=== PATIENT | female | born 1950 ===

== ENCOUNTER 2020-01-21 09:19 | Inpatient (IN) ==
[2020-01-21] MEDS: *HR* OxyCODONE/APAP 5/325 TABLET PO PRN ×3 (13:16→21:48)
[2020-01-21] MEDS: Latanoprost 2.5 ML BOTTLE BOTH EYES SCH (21:49)
[2020-01-21] MEDS: hydrALAZINE 25 MG TABLET PO SCH (21:49)
[2020-01-22] MEDS: *HR* OxyCODONE/APAP 5/325 TABLET PO PRN ×3 (04:40→18:46)
[2020-01-22 06:16] LABS: Basophils % 0.5 %; Eosinophils # 0.2 K/mcL (0.0-0.6); Hematocrit 31.6 % (35.3-44.9); Hemoglobin 10.4 g/dL (11.5-15.4); Lymphocytes # 1.2 K/mcL (0.6-4.6); Mean Corpuscular HGB Conc 32.9 g/dL (31.6-35.5); Mean Corpuscular Hemoglobin 29.4 pg (28.0-33.3); Mean Corpuscular Volume 89.3 fL (83.0-100.0); Mean Platelet Volume 10.8 fL (9.4-12.4); Monocytes # 0.7 K/mcL (0.0-1.3); Monocytes % 8.7 %; Platelet Count 325 K/mcL (140-400); Red Blood Count 3.54 M/mcL (3.82-4.97); Red Cell Distribution Width 14.6 % (11.5-14.5); Segmented Neutrophils % 72.8 %; White Blood Count 8.2 K/mcL (4.3-11.1)
[2020-01-22 06:33] LABS: BUN/Creatinine Ratio 51 (6-26); Blood Urea Nitrogen 49 mg/dL (8-23); Calcium 8.9 mg/dL (8.6-10.3); Carbon Dioxide 26 mEq/L (23-29); Chloride 97 mEq/L (98-107); Glucose 190 mg/dL (70-105); Osmolality,Calculated 292 (280-300); Potassium 4.3 mEq/L (3.5-5.1); Sodium 132 mEq/L (136-145); eGFR For African Americans > 60 (> 60); eGFR For Non-African Americans 57 (> 60)
[2020-01-22] MEDS: [UNRECOGNIZED DRUG - REMARK] PO SCH (09:49)
[2020-01-22] MEDS: VIT E PO SCH (09:49)
[2020-01-22] MEDS: COPPER PO SCH (09:49)
[2020-01-22] MEDS: VIT A PO SCH (09:49)
[2020-01-22] MEDS: ZINC SULFATE 220 MG PO SCH (09:49)
[2020-01-22] MEDS: ZINC PO SCH (09:49)
[2020-01-22] MEDS: VIT C PO SCH (09:49)
[2020-01-22] MEDS: Valsartan 160 MG TABLET PO SCH (09:50)
[2020-01-22] MEDS: Cholecalciferol (D-3) 1,000 UNIT (25MCG) TABLET PO SCH (09:50)
[2020-01-22] MEDS: hydrALAZINE 25 MG TABLET PO SCH ×2 (09:50→20:17)
[2020-01-22] MEDS: Vitamin B Complex/Vit C/Vit E 1 EACH TABLET PO SCH (09:50)
[2020-01-22] MEDS: *HR* Metformin 500 MG TABLET PO SCH ×2 (09:51→20:18)
[2020-01-22] MEDS: Fenofibrate 54 MG TABLET PO SCH (09:51)
[2020-01-22] MEDS: Aspirin 325 MG TABLET PO SCH (09:51)
[2020-01-22] MEDS: hydroCHLOROthiazide 25 MG TABLET PO SCH (09:52)
[2020-01-22] MEDS: INSULIN DEGLUDEC SQ SCH (09:54)
[2020-01-22] MEDS: LIRAGLUTIDE SQ SCH (09:54)
[2020-01-22] MEDS ORDERED: Dextrose Gel 15 GM/37.5 ML TUBE PO PRN ×2 (14:28)
[2020-01-22] MEDS ORDERED: *HR* Dextrose 50 % in Water (Vial) 50 ML VIAL IVP PRN (14:28)
[2020-01-22] MEDS ORDERED: D5% in Water 1,000 ML IVC PRN (14:28)
[2020-01-22] MEDS: Insulin LISPRO 300 UNITS/3 ML VIAL SQ SCH (16:40)
[2020-01-22] MEDS: Latanoprost 2.5 ML BOTTLE BOTH EYES SCH (22:05)
[2020-01-23] MEDS: *HR* OxyCODONE/APAP 5/325 TABLET PO PRN ×4 (02:49→16:41)
[2020-01-23] MEDS: *HR* Metformin 500 MG TABLET PO SCH ×2 (08:22→19:55)
[2020-01-23] MEDS: Fenofibrate 54 MG TABLET PO SCH (08:22)
[2020-01-23] MEDS: Valsartan 160 MG TABLET PO SCH (08:23)
[2020-01-23] MEDS: hydrALAZINE 25 MG TABLET PO SCH ×2 (08:23→19:55)
[2020-01-23] MEDS: Vitamin B Complex/Vit C/Vit E 1 EACH TABLET PO SCH (08:23)
[2020-01-23] MEDS: Insulin LISPRO 300 UNITS/3 ML VIAL SQ SCH ×3 (08:24→16:39)
[2020-01-23] MEDS: Cholecalciferol (D-3) 1,000 UNIT (25MCG) TABLET PO SCH (08:24)
[2020-01-23] MEDS: Aspirin 325 MG TABLET PO SCH (08:24)
[2020-01-23] MEDS: Fluticasone Propionate Nasal 50 MCG/SPRAY BOTTLE NS SCH (08:24)
[2020-01-23] MEDS: hydroCHLOROthiazide 25 MG TABLET PO SCH (08:24)
[2020-01-23] MEDS: VIT A PO SCH (08:25)
[2020-01-23] MEDS: ZINC PO SCH (08:25)
[2020-01-23] MEDS: COPPER PO SCH (08:25)
[2020-01-23] MEDS: VIT E PO SCH (08:25)
[2020-01-23] MEDS: [UNRECOGNIZED DRUG - REMARK] PO SCH (08:25)
[2020-01-23] MEDS: VIT C PO SCH (08:25)
[2020-01-23] MEDS: ZINC SULFATE 220 MG PO SCH (08:25)
[2020-01-23] MEDS: INSULIN DEGLUDEC SQ SCH (08:30)
[2020-01-23] MEDS: LIRAGLUTIDE SQ SCH (08:30)
[2020-01-23] MEDS ORDERED: ZINC SULFATE 220 MG PO SCH (11:30)
[2020-01-23] MEDS: Zinc Sulfate 220 MG CAPSULE PO SCH (12:32)
[2020-01-23] MEDS: Furosemide 20 MG TABLET PO SCH (16:01)
[2020-01-23] MEDS: Latanoprost 2.5 ML BOTTLE BOTH EYES SCH (19:58)
[2020-01-24] MEDS: *HR* OxyCODONE/APAP 5/325 TABLET PO PRN ×4 (01:46→20:30)
[2020-01-24] MEDS: Insulin LISPRO 300 UNITS/3 ML VIAL SQ SCH ×3 (07:57→17:33)
[2020-01-24] MEDS: Fenofibrate 54 MG TABLET PO SCH (08:17)
[2020-01-24] MEDS: hydroCHLOROthiazide 25 MG TABLET PO SCH (08:18)
[2020-01-24] MEDS: Valsartan 160 MG TABLET PO SCH (08:18)
[2020-01-24] MEDS: *HR* Metformin 500 MG TABLET PO SCH ×2 (08:18→20:27)
[2020-01-24] MEDS: Vitamin B Complex/Vit C/Vit E 1 EACH TABLET PO SCH (08:18)
[2020-01-24] MEDS: Furosemide 20 MG TABLET PO SCH (08:18)
[2020-01-24] MEDS: Aspirin 325 MG TABLET PO SCH (08:18)
[2020-01-24] MEDS: hydrALAZINE 25 MG TABLET PO SCH ×2 (08:19→19:13)
[2020-01-24] MEDS: Zinc Sulfate 220 MG CAPSULE PO SCH (08:19)
[2020-01-24] MEDS: INSULIN DEGLUDEC SQ SCH (08:28)
[2020-01-24] MEDS: LIRAGLUTIDE SQ SCH (08:28)
[2020-01-24] MEDS: [UNRECOGNIZED DRUG - REMARK] PO SCH (08:28)
[2020-01-24] MEDS: COPPER PO SCH (08:29)
[2020-01-24] MEDS: Fluticasone Propionate Nasal 50 MCG/SPRAY BOTTLE NS SCH (08:29)
[2020-01-24] MEDS: Cholecalciferol (D-3) 1,000 UNIT (25MCG) TABLET PO SCH (08:29)
[2020-01-24] MEDS: VIT E PO SCH (08:29)
[2020-01-24] MEDS: VIT A PO SCH (08:29)
[2020-01-24] MEDS: VIT C PO SCH (08:29)
[2020-01-24] MEDS: ZINC PO SCH (08:29)
[2020-01-24] MEDS: Latanoprost 2.5 ML BOTTLE BOTH EYES SCH (20:33)
[2020-01-25 05:29] LABS: Basophils % 0.6 %; Eosinophils # 0.2 K/mcL (0.0-0.6); Eosinophils % 3.1 %; Hematocrit 31.3 % (35.3-44.9); Hemoglobin 10.3 g/dL (11.5-15.4); Immature Granulocytes % 0.6 % (0-4); Lymphocytes # 2.1 K/mcL (0.6-4.6); Lymphocytes % 30.4 %; Mean Corpuscular HGB Conc 32.9 g/dL (31.6-35.5); Mean Corpuscular Hemoglobin 29.1 pg (28.0-33.3); Mean Corpuscular Volume 88.4 fL (83.0-100.0); Mean Platelet Volume 10.1 fL (9.4-12.4); Monocytes # 0.9 K/mcL (0.0-1.3); Monocytes % 12.6 %; Neutrophils # 3.6 K/mcL (1.6-8.9); Platelet Count 284 K/mcL (140-400); Red Blood Count 3.54 M/mcL (3.82-4.97); Red Cell Distribution Width 14.5 % (11.5-14.5); Segmented Neutrophils % 52.7 %; White Blood Count 6.8 K/mcL (4.3-11.1)
[2020-01-25 05:43] LABS: BUN/Creatinine Ratio 31 (6-26); Blood Urea Nitrogen 22 mg/dL (8-23); Carbon Dioxide 25 mEq/L (23-29); Chloride 102 mEq/L (98-107); Glucose 78 mg/dL (70-105); Osmolality,Calculated 284 (280-300); Potassium 3.7 mEq/L (3.5-5.1); Sodium 136 mEq/L (136-145); eGFR For African Americans > 60 (> 60); eGFR For Non-African Americans > 60 (> 60)
[2020-01-25] MEDS: Fluticasone Propionate Nasal 50 MCG/SPRAY BOTTLE NS SCH (05:45)
[2020-01-25] MEDS: Aspirin 325 MG TABLET PO SCH (07:39)
[2020-01-25] MEDS: Valsartan 160 MG TABLET PO SCH (07:39)
[2020-01-25] MEDS: hydrALAZINE 25 MG TABLET PO SCH ×2 (07:40→19:19)
[2020-01-25] MEDS: Fenofibrate 54 MG TABLET PO SCH (07:40)
[2020-01-25] MEDS: hydroCHLOROthiazide 25 MG TABLET PO SCH (07:41)
[2020-01-25] MEDS: *HR* Metformin 500 MG TABLET PO SCH ×2 (07:41→19:20)
[2020-01-25] MEDS: Furosemide 20 MG TABLET PO SCH (07:41)
[2020-01-25] MEDS: Cholecalciferol (D-3) 1,000 UNIT (25MCG) TABLET PO SCH (07:41)
[2020-01-25] MEDS: Vitamin B Complex/Vit C/Vit E 1 EACH TABLET PO SCH (07:41)
[2020-01-25] MEDS: *HR* OxyCODONE/APAP 5/325 TABLET PO PRN ×2 (07:41→16:16)
[2020-01-25] MEDS: Zinc Sulfate 220 MG CAPSULE PO SCH (07:41)
[2020-01-25] MEDS: Insulin LISPRO 300 UNITS/3 ML VIAL SQ SCH ×3 (07:46→19:03)
[2020-01-25] MEDS: VIT A PO SCH (07:53)
[2020-01-25] MEDS: INSULIN DEGLUDEC SQ SCH (07:53)
[2020-01-25] MEDS: [UNRECOGNIZED DRUG - REMARK] PO SCH (07:53)
[2020-01-25] MEDS: COPPER PO SCH (07:53)
[2020-01-25] MEDS: VIT E PO SCH (07:53)
[2020-01-25] MEDS: LIRAGLUTIDE SQ SCH (07:53)
[2020-01-25] MEDS: VIT C PO SCH (07:53)
[2020-01-25] MEDS: ZINC PO SCH (07:53)
[2020-01-25] MEDS ORDERED: Furosemide 20 MG TABLET PO ONE (11:55)
[2020-01-25] MEDS: Latanoprost 2.5 ML BOTTLE BOTH EYES SCH (19:20)
[2020-01-26 06:03] LABS: BUN/Creatinine Ratio 25 (6-26); Blood Urea Nitrogen 19 mg/dL (8-23); Calcium 9.4 mg/dL (8.6-10.3); Carbon Dioxide 26 mEq/L (23-29); Chloride 101 mEq/L (98-107); Glucose 78 mg/dL (70-105); Osmolality,Calculated 285 (280-300); Potassium 3.5 mEq/L (3.5-5.1); Sodium 137 mEq/L (136-145); eGFR For African Americans > 60 (> 60); eGFR For Non-African Americans > 60 (> 60)
[2020-01-26] MEDS: Insulin LISPRO 300 UNITS/3 ML VIAL SQ SCH ×3 (08:03→15:34)
[2020-01-26] MEDS: [UNRECOGNIZED DRUG - REMARK] PO SCH (09:27)
[2020-01-26] MEDS: VIT A PO SCH (09:28)
[2020-01-26] MEDS: ZINC PO SCH (09:28)
[2020-01-26] MEDS: VIT E PO SCH (09:28)
[2020-01-26] MEDS: COPPER PO SCH (09:28)
[2020-01-26] MEDS: VIT C PO SCH (09:28)
[2020-01-26] MEDS: Aspirin 325 MG TABLET PO SCH (09:38)
[2020-01-26] MEDS: Fenofibrate 54 MG TABLET PO SCH (09:39)
[2020-01-26] MEDS: *HR* OxyCODONE/APAP 5/325 TABLET PO PRN ×2 (09:39→18:31)
[2020-01-26] MEDS: hydroCHLOROthiazide 25 MG TABLET PO SCH (09:39)
[2020-01-26] MEDS: Zinc Sulfate 220 MG CAPSULE PO SCH (09:39)
[2020-01-26] MEDS: Vitamin B Complex/Vit C/Vit E 1 EACH TABLET PO SCH (09:39)
[2020-01-26] MEDS: hydrALAZINE 25 MG TABLET PO SCH ×3 (09:39→22:17)
[2020-01-26] MEDS: Valsartan 160 MG TABLET PO SCH (09:39)
[2020-01-26] MEDS: Furosemide 20 MG TABLET PO SCH (09:39)
[2020-01-26] MEDS: *HR* Metformin 500 MG TABLET PO SCH ×2 (09:40→22:16)
[2020-01-26] MEDS: Cholecalciferol (D-3) 1,000 UNIT (25MCG) TABLET PO SCH (09:41)
[2020-01-26] MEDS: Fluticasone Propionate Nasal 50 MCG/SPRAY BOTTLE NS SCH (09:44)
[2020-01-26] MEDS: LIRAGLUTIDE SQ SCH (09:45)
[2020-01-26] MEDS: INSULIN DEGLUDEC SQ SCH (09:45)
[2020-01-26] MEDS: amLODIPine 5 MG TABLET PO SCH (12:14)
[2020-01-26] MEDS: Latanoprost 2.5 ML BOTTLE BOTH EYES SCH (22:22)
[2020-01-27] MEDS: *HR* OxyCODONE/APAP 5/325 TABLET PO PRN ×3 (06:27→21:00)
[2020-01-27] MEDS: Insulin LISPRO 300 UNITS/3 ML VIAL SQ SCH ×3 (07:53→16:20)
[2020-01-27] MEDS: [UNRECOGNIZED DRUG - REMARK] PO SCH (08:08)
[2020-01-27] MEDS: VIT E PO SCH (08:08)
[2020-01-27] MEDS: VIT A PO SCH (08:08)
[2020-01-27] MEDS: COPPER PO SCH (08:08)
[2020-01-27] MEDS: LIRAGLUTIDE SQ SCH (08:08)
[2020-01-27] MEDS: VIT C PO SCH (08:08)
[2020-01-27] MEDS: ZINC PO SCH (08:08)
[2020-01-27] MEDS: INSULIN DEGLUDEC SQ SCH (08:08)
[2020-01-27] MEDS: *HR* Metformin 500 MG TABLET PO SCH ×2 (08:09→21:04)
[2020-01-27] MEDS: Zinc Sulfate 220 MG CAPSULE PO SCH (08:09)
[2020-01-27] MEDS: Fluticasone Propionate Nasal 50 MCG/SPRAY BOTTLE NS SCH (08:09)
[2020-01-27] MEDS: Vitamin B Complex/Vit C/Vit E 1 EACH TABLET PO SCH (08:09)
[2020-01-27] MEDS: amLODIPine 5 MG TABLET PO SCH (08:09)
[2020-01-27] MEDS: Aspirin 325 MG TABLET PO SCH (08:09)
[2020-01-27] MEDS: Valsartan 160 MG TABLET PO SCH (08:09)
[2020-01-27] MEDS: hydroCHLOROthiazide 25 MG TABLET PO SCH (08:09)
[2020-01-27] MEDS: Furosemide 20 MG TABLET PO SCH (08:10)
[2020-01-27] MEDS: Fenofibrate 54 MG TABLET PO SCH (08:10)
[2020-01-27] MEDS: hydrALAZINE 25 MG TABLET PO SCH ×3 (08:10→21:02)
[2020-01-27] MEDS: Cholecalciferol (D-3) 1,000 UNIT (25MCG) TABLET PO SCH (08:11)
[2020-01-28] MEDS: Latanoprost 2.5 ML BOTTLE BOTH EYES SCH ×2 (02:55→19:41)
[2020-01-28] MEDS: Insulin LISPRO 300 UNITS/3 ML VIAL SQ SCH ×3 (08:12→16:49)
[2020-01-28] MEDS: Valsartan 160 MG TABLET PO SCH (09:42)
[2020-01-28] MEDS: Zinc Sulfate 220 MG CAPSULE PO SCH (09:42)
[2020-01-28] MEDS: *HR* Metformin 500 MG TABLET PO SCH ×2 (09:42→19:40)
[2020-01-28] MEDS: Fluticasone Propionate Nasal 50 MCG/SPRAY BOTTLE NS SCH (09:42)
[2020-01-28] MEDS: Furosemide 20 MG TABLET PO SCH (09:42)
[2020-01-28] MEDS: Aspirin 325 MG TABLET PO SCH (09:42)
[2020-01-28] MEDS: Fenofibrate 54 MG TABLET PO SCH (09:43)
[2020-01-28] MEDS: hydrALAZINE 25 MG TABLET PO SCH ×3 (09:43→19:41)
[2020-01-28] MEDS: amLODIPine 5 MG TABLET PO SCH (09:43)
[2020-01-28] MEDS: hydroCHLOROthiazide 25 MG TABLET PO SCH (09:43)
[2020-01-28] MEDS: *HR* OxyCODONE/APAP 5/325 TABLET PO PRN ×2 (09:43→19:39)
[2020-01-28] MEDS: Cholecalciferol (D-3) 1,000 UNIT (25MCG) TABLET PO SCH (09:43)
[2020-01-28] MEDS: Vitamin B Complex/Vit C/Vit E 1 EACH TABLET PO SCH (09:43)
[2020-01-28] MEDS: INSULIN DEGLUDEC SQ SCH (09:44)
[2020-01-28] MEDS: LIRAGLUTIDE SQ SCH (09:44)
[2020-01-29 06:18] LABS: Hematocrit 31.7 % (35.3-44.9); Hemoglobin 10.4 g/dL (11.5-15.4); Mean Corpuscular HGB Conc 32.8 g/dL (31.6-35.5); Mean Corpuscular Hemoglobin 29.1 pg (28.0-33.3); Mean Corpuscular Volume 88.8 fL (83.0-100.0); Mean Platelet Volume 11.1 fL (9.4-12.4); Platelet Count 255 K/mcL (140-400); Red Blood Count 3.57 M/mcL (3.82-4.97); Red Cell Distribution Width 14.2 % (11.5-14.5); White Blood Count 6.7 K/mcL (4.3-11.1)
[2020-01-29 06:47] LABS: Alanine Aminotransferase 29 Units/L (7-52); Albumin 3.4 g/dL (3.5-5.7); Alkaline Phosphatase 39 Units/L (34-104); Aspartate Amino Transferase 17 Units/L (13-39); BUN/Creatinine Ratio 39 (6-26); Bilirubin,Total 0.6 mg/dL (0.3-1.0); Blood Urea Nitrogen 39 mg/dL (8-23); Calcium 9.1 mg/dL (8.6-10.3); Carbon Dioxide 26 mEq/L (23-29); Chloride 101 mEq/L (98-107); Globulin 3.3 g/dL (2.4-3.5); Glucose 122 mg/dL (70-105); Magnesium 1.7 mg/dL (1.6-2.6); Osmolality,Calculated 291 (280-300); Potassium 3.6 mEq/L (3.5-5.1); Sodium 135 mEq/L (136-145); Total Protein 6.7 g/dL (6.4-8.9); eGFR For African Americans > 60 (> 60); eGFR For Non-African Americans 55 (> 60)
[2020-01-29] MEDS: Insulin LISPRO 300 UNITS/3 ML VIAL SQ SCH ×3 (08:43→16:38)
[2020-01-29] MEDS: *HR* OxyCODONE/APAP 5/325 TABLET PO PRN ×2 (09:14→18:13)
[2020-01-29] MEDS: Valsartan 160 MG TABLET PO SCH (09:15)
[2020-01-29] MEDS: Aspirin 325 MG TABLET PO SCH (09:15)
[2020-01-29] MEDS: Fenofibrate 54 MG TABLET PO SCH (09:15)
[2020-01-29] MEDS: hydrALAZINE 25 MG TABLET PO SCH ×3 (09:15→20:01)
[2020-01-29] MEDS: amLODIPine 5 MG TABLET PO SCH (09:16)
[2020-01-29] MEDS: Zinc Sulfate 220 MG CAPSULE PO SCH (09:16)
[2020-01-29] MEDS: Cholecalciferol (D-3) 1,000 UNIT (25MCG) TABLET PO SCH (09:16)
[2020-01-29] MEDS: hydroCHLOROthiazide 25 MG TABLET PO SCH (09:16)
[2020-01-29] MEDS: *HR* Metformin 500 MG TABLET PO SCH ×2 (09:16→20:01)
[2020-01-29] MEDS: Vitamin B Complex/Vit C/Vit E 1 EACH TABLET PO SCH (09:16)
[2020-01-29] MEDS: Furosemide 20 MG TABLET PO SCH (09:16)
[2020-01-29] MEDS: Fluticasone Propionate Nasal 50 MCG/SPRAY BOTTLE NS SCH (09:16)
[2020-01-29] MEDS: INSULIN DEGLUDEC SQ SCH (09:20)
[2020-01-29] MEDS: LIRAGLUTIDE SQ SCH (09:20)
[2020-01-29] MEDS: Latanoprost 2.5 ML BOTTLE BOTH EYES SCH (20:01)
[2020-01-30 07:16] VITALS: BP 162/64
[2020-01-30] MEDS: LIRAGLUTIDE SQ SCH (08:43)
[2020-01-30] MEDS: Insulin LISPRO 300 UNITS/3 ML VIAL SQ SCH (08:43)
[2020-01-30] MEDS: INSULIN DEGLUDEC SQ SCH (08:43)
[2020-01-30] MEDS: Zinc Sulfate 220 MG CAPSULE PO SCH (08:52)
[2020-01-30] MEDS: Fenofibrate 54 MG TABLET PO SCH (08:52)
[2020-01-30] MEDS: Cholecalciferol (D-3) 1,000 UNIT (25MCG) TABLET PO SCH (08:52)
[2020-01-30] MEDS: amLODIPine 5 MG TABLET PO SCH (08:52)
[2020-01-30] MEDS: hydroCHLOROthiazide 25 MG TABLET PO SCH (08:52)
[2020-01-30] MEDS: Fluticasone Propionate Nasal 50 MCG/SPRAY BOTTLE NS SCH (08:53)
[2020-01-30] MEDS: Vitamin B Complex/Vit C/Vit E 1 EACH TABLET PO SCH (08:53)
[2020-01-30] MEDS: *HR* Metformin 500 MG TABLET PO SCH (08:53)
[2020-01-30] MEDS: Valsartan 160 MG TABLET PO SCH (08:53)
[2020-01-30] MEDS: Aspirin 325 MG TABLET PO SCH (08:53)
[2020-01-30] MEDS: hydrALAZINE 25 MG TABLET PO SCH (08:53)
[2020-01-30] MEDS: Furosemide 20 MG TABLET PO SCH (08:56)
== END 2020-01-30 11:50 | disposition home health service (06) | DRG 949 ==
LOC: INPGRE 11:50
PROVIDERS: ADMIT Family Medicine; ATTEND Family Medicine